=== PATIENT | male | born 1935 | race Caucasian/White ===

== ENCOUNTER 2018-10-09 11:05 | Outpatient (CLI) | payer BC ==
--- NOTE | 2018-10-11 03:25 | XRAY Report ---
Reason: JOINT KNEE PAIN,RIGHT Procedure Date: 10/09/2018 Accession Number: [id number] / [id number] Procedure: XRN - Knee 3 View RT CPT Code: FULL RESULT: EXAM: RIGHT KNEE RADIOGRAPHY EXAM DATE: 10/09/2018 11:32 AM. CLINICAL HISTORY: JOINT KNEE PAIN,RIGHT. COMPARISON: None. TECHNIQUE: 3 views. FINDINGS: Bones: No acute fractures. Joints: Suspect small suprapatellar effusion. No subluxations or dislocation. Multi-compartmental osteoarthritis of the knee most prominent at the medial compartment and patellofemoral articulation. Soft Tissues: Peripheral vascular calcifications and nonspecific calcifications in popliteal fossa. IMPRESSION: 1. Osteoarthritis of right knee without evidence of acute fracture. 2. Suspect small knee joint effusion. 3. Peripheral vascular calcifications and nonspecific calcifications in popliteal fossa. RADIA
== END 2018-10-09 11:06 | disposition home or self-care (01) ==
LOC: DI.N 11:05
PROVIDERS: ATTEND Family Medicine
DX: M17.11 Unilateral primary osteoarthritis, right knee (principal)

== ENCOUNTER 2019-10-30 15:04 | Observation (INO) | payer BC ==
[2019-10-30 15:30] LABS: BASOPHILS # (AUTO) 0.2 10^3/uL (0.0-0.1); BASOPHILS % (AUTO) 1.4 %; EOSINOPHILS % (AUTO) 0.1 %; HGB - HEMOGLOBIN 11.3 g/dL (14.0-18.0); LYMPHOCYTES # (AUTO) 0.7 10^3/uL (1.5-3.5); LYMPHOCYTES % (AUTO) 4.7 %; MEAN CORPUSCULAR HEMOGLOBIN 36.8 pg (27.0-31.0); MEAN CORPUSCULAR HGB CONC 33.9 g/dL (32.0-36.0); MEAN CORPUSCULAR VOLUME 108.5 fL (80.0-94.0); MEAN PLATELET VOLUME 11.7 fL (7.4-11.4); MONOCYTES # (AUTO) 0.8 10^3/uL (0.0-1.0); MONOCYTES % (AUTO) 5.7 %; NEUTROPHILS # (AUTO) 12.1 10^3/uL (1.5-6.6); NEUTROPHILS % (AUTO) 83.2 %; PLT - PLATELET COUNT 122 10^3/uL (130-450); RED BLOOD COUNT 3.07 10^6/uL (4.70-6.10); RED CELL DISTRIBUTION WIDTH 18.7 % (12.0-15.0); WHITE BLOOD COUNT 14.6 x10^3/uL (4.8-10.8)
[2019-10-30 15:45] LABS: ALBUMIN/GLOBULIN RATIO 1.2 (1.0-2.2); BILIRUBIN,TOTAL 3.6 mg/dL (0.2-1.0); CALCIUM 9.5 mg/dL (8.5-10.3); CREATININE 1.4 mg/dL (0.6-1.2); TOTAL PROTEIN 7.4 g/dL (6.7-8.2)
--- NOTE | 2019-10-30 16:04 | XRAY Report ---
PROCEDURE: Chest 1 View X-Ray INDICATIONS: Chest pain TECHNIQUE: One view of the chest was acquired. COMPARISON: None. FINDINGS: Surgical changes and devices: Multiple median sternotomy wires are in place. Left-sided cardiac pacin g device is visualized. Post surgical changes of the mediastinum, likely from prior revascularization procedure. Lungs and pleura: No pneumothorax. Diffuse interstitial prominence with mild loss of vascular distin ctness. Hazy opacity and blunting of the left costophrenic angle likely representing a pleural effusi on. There are also patchy bibasilar opacities more pronounced on the left. Minimal blunting of the ri ght costophrenic angle. Mediastinum: Atherosclerotic calcifications of the aortic arch are noted. Enlargement the cardiac bk [place]. Bones and chest wall: No suspicious bony lesions. Overlying soft tissues appear unremarkable. IMPRESSION: Cardiomegaly with findings suggestive of pulmonary edema. Left lower lung infectious etiology/pneumon ia not excluded if clinically appropriate. Reviewed by: Osvaldo Matamoros MD on 10/30/2019 4:03 PM PDT Approved by: Osvaldo Matamoros MD on 10/30/2019 4:03 PM PDT Station ID: [id number]
--- NOTE | 2019-10-30 16:18 | ED Physician Documentation ---
PD HPI DYSPNEA - Stated complaint Stated Complaint: COUGHING BLOOD,WEAK - Chief complaint Chief Complaint: General - History obtained from History obtained from: Patient - History of Present Illness Timing - onset: How many days ago (6) Timing - onset during: Light activity Timing - details: Gradual onset (had noted onset of some dyspnea and fatigue for the past week 1-2 weeks, but became very notable after having outpt stenting of AAA at [facility] 6 days ago (Oct 23). Has had edema in both legs, dyspnea, chest tightness. Had not had cough. Today he started to have some mild cough, with hemoptysis.), Still present Inciting event(s): No: Out of meds, URI (some cough today but no purulent sputum. No fever.) Associated symptoms: Cough (just some today), Hemoptysis, Chest pain / discomfort, Bilateral edema. No: Fever, Wheezing, Palpitations Similar symptoms before: Has not had sx before Recently seen: Clinic (had outpt cardiac stress test few weeks ago in prep for the aortic stenting just done. Daughter says the patient did fine on the stress test (possible small area of reversible ischemia per daughter).), Surgery (outpt stent of AAA 6 days ago without complications.) Review of Systems Constitutional: reports: Fatigue. denies: Fever, Chills Nose: denies: Rhinorrhea / runny nose, Congestion Throat: denies: Sore throat Cardiac: reports: Chest pain / pressure, Pedal edema. denies: Palpitations, Calf pain Respiratory: reports: Dyspnea, Cough, Hemoptysis (just today, small wispy red sputum, with one clot the size of a dime.). denies: Wheezing GI: denies: Abdominal Pain, Nausea, Vomiting, Diarrhea, Bloody / black stool Musculoskeletal: reports: Extremity swelling. denies: Neck pain, Back pain Neurologic: reports: Generalized weakness. denies: Near syncope, Altered mental status Endocrine: denies: Weight loss Immunocompromised: denies: Immunocompromised PD PAST MEDICAL HISTORY - Past Medical History Cardiovascular: Hypertension, High cholesterol, Coronary artery disease, Atrial fibrillation, Other Respiratory: None Endocrine/Autoimmune: None GI: Other : None HEENT: Chronic hearing loss Psych: None Musculoskeletal: None Derm: Other - Past Surgical History General:  Cardiovascular: CABG, AAA - Present Medications Home Medications: Ambulatory Orders Medication Instructions Recorded Confirmed Cholecalciferol (Vitamin D3) 1,000 unit PO DAILY 09/29/15 07/29/19 [Vitamin D3] Cyanocobalamin (Vitamin B-12) 1,000 mcg PO DAILY 09/29/15 07/29/19 [Vitamin B-12] Furosemide [Lasix] 20 mg PO DAILY 09/29/15 07/29/19 Potassium Bicarbonate/Cit AC 25 meq PO DAILY 09/29/15 07/29/19 [Potassium 25 Meq Tablet Eff] Warfarin [Coumadin] 5.5 mg PO DAILY 09/29/15 07/29/19 atenoloL [Atenolol] 25 mg PO DAILY 09/29/15 07/29/19 Folic Acid 0.4 mg PO DAILY 01/24/17 07/29/19 [place]-3/Dha/Epa/Fish Oil [[place] 3 2 each PO DAILY 07/29/19 07/29/19 500 Softgel] - Allergies Allergies/Adverse Reactions: Allergies Allergy/AdvReac Type Severity Reaction Status Date / Time No Known Drug Allergies Allergy Verified 10/30/19 15:09 - Social History Smoking Status: Never smoker PD ED PE NORMAL - Vitals Vital signs reviewed: Yes (sats 88-89% RA, with some work of breathing. ) - General General: Alert and oriented X 3, Well developed/nourished - HEENT HEENT: Pharynx benign - Neck Neck: Supple, no meningeal sign, No adenopathy, No bruit, Other (JVD noted at 60 degrees upright) - Cardiac Cardiac: RRR - Respiratory Respiratory: Other (some partial sentence dyspnea. ). No: Clear bilaterally (crackles at bases/ bottom third. No coarse sounds. Mild exp wheezes centrally. ) - Abdomen Abdomen: Normal bowel sounds, Soft, Non tender, Non distended, No organomegaly - Back Back: No CVA TTP - Derm Derm: Normal color, Warm and dry - Extremities Extremities: No tenderness to palpate, Normal ROM s pain, Other (1-2+ edema in both lower legs. No calf tenderrness. ) - Neuro Neuro: Alert and oriented X 3, No motor deficit, Normal speech - Psych Psych: Normal mood. No: Normal affect (anxious) Results - Vitals Vitals: Vital Signs - 24 hr 10/30/19 10/30/19 10/30/19 15:10 16:14 17:14 Temperature 36.8 C Heart Rate 60 60 67 Respiratory 16 27 H 21 Rate Blood Pressure 122/60 133/72 H 124/66 O2 Saturation 91 L 94 95 10/30/19 10/30/19 17:30 18:30 Temperature Heart Rate 20 L 69 Respiratory 63 H 26 H Rate Blood Pressure 115/82 H O2 Saturation 94 Oxygen O2 Source Room air Oxygen Flow Rate 2 - EKG (time done) 15:18 Rate: Rate (enter#) (60) Rhythm: Other (junctional) Intervals: LBBB Ischemia: Normal ST segments, ST elevation c/w ischemia, Non specific changes Compare to prior EKG: Unchanged from prior EKG (September 2015, very same ECG.) - Labs Labs: Laboratory Tests 10/30/19 10/30/19 10/30/19 15:23 15:23 15:23 WBC 14.6 H RBC 3.07 L Hgb 11.3 L Hct 33.3 L MCV 108.5 H MCH 36.8 H MCHC 33.9 RDW 18.7 H Plt Count 122 L MPV 11.7 H Neut # (Auto) 12.1 H Lymph # (Auto) 0.7 L Prentiss # (Auto) 0.8 Eos # (Auto) 0.0 Baso # (Auto) 0.2 H Absolute Nucleated RBC 0.00 Nucleated RBC % 0.0 Manual Slide Review Indicated Platelet Estimate DECREASED (<130,000) Platelet Morphology NORMAL APPEARANCE RBC Morph Micro Appear 1+ MACROCYTOSIS PT INR Sodium 138 Potassium 4.5 Chloride 101 Carbon Dioxide 24 Anion Gap 13.0 BUN 36 H Creatinine 1.4 H Estimated GFR (MDRD) 48 L Glucose 130 H Calcium 9.5 Magnesium Total Bilirubin 3.6 H AST 32 ALT 19 Alkaline Phosphatase 73 Troponin I High Sens 283.1 H* B-Natriuretic Peptide Total Protein 7.4 Albumin 4.0 Globulin 3.4 Albumin/Globulin Ratio 1.2 Lipase 27 10/30/19 10/30/19 10/30/19 15:23 15:23 15:23 WBC RBC Hgb Hct MCV MCH MCHC RDW Plt Count MPV Neut # (Auto) Lymph # (Auto) Prentiss # (Auto) Eos # (Auto) Baso # (Auto) Absolute Nucleated RBC Nucleated RBC % Manual Slide Review Platelet Estimate Platelet Morphology RBC Morph Micro Appear PT 25.7 H INR 2.4 H Sodium Potassium Chloride Carbon Dioxide Anion Gap BUN Creatinine Estimated GFR (MDRD) Glucose Calcium Magnesium 2.4 Total Bilirubin AST ALT Alkaline Phosphatase Troponin I High Sens B-Natriuretic Peptide 1164 H Total Protein Albumin Globulin Albumin/Globulin Ratio Lipase 10/30/19 17:30 WBC RBC Hgb Hct MCV MCH MCHC RDW Plt Count MPV Neut # (Auto) Lymph # (Auto) Prentiss # (Auto) Eos # (Auto) Baso # (Auto) Absolute Nucleated RBC Nucleated RBC % Manual Slide Review Platelet Estimate Platelet Morphology RBC Morph Micro Appear PT INR Sodium Potassium Chloride Carbon Dioxide Anion Gap BUN Creatinine Estimated GFR (MDRD) Glucose Calcium Magnesium Total Bilirubin AST ALT Alkaline Phosphatase Troponin I High Sens 283.7 H* B-Natriuretic Peptide Total Protein Albumin Globulin Albumin/Globulin Ratio Lipase - Rads (name of study) Chest x-ray Radiology: Prelim report reviewed (General interstitial fluid consistent with pulmonary edema. More consolidative area on the left lower lung. Correlate clinically if suspicion for pneumonia), See rad report PD MEDICAL DECISION MAKING - ED course Complexity details: re-evaluated patient (doing better with oxygen, initial Lasix, and Morphine. BP was relatively low so did not need BP lowering, so held NTG. ), considered differential (appears in CHF. is on blood thinner with some hemoptysis, but mild. Has had symptoms since AAA stent outpt 6 days ago. Presume fluid overload during procedure and then fluid retention since. Could also be periprocedure WI with the elevated Trop. ), d/w patient, d/w sr risk management consultant (S/W pt/daughter and with our Hospitalist, all of whom are good with pt here at our facility. WIll need diuresing, eval of heart (ECHO/stress). ) Departure - Departure Disposition: ED Place in Observation Clinical Impression: Elevated troponin Acute CHF Qualifiers: Heart failure type: unspecified Qualified Code(s): I50.9 - Heart failure, unspecified Dyspnea Qualifiers: Dyspnea type: shortness of breath Qualified Code(s): R06.02 - Shortness of breath Condition: Stable Discharge Date/Time: 10/30/19 19:41
[2019-10-30 16:20] LABS: PLATELET MORPHOLOGY NORMAL APPEARANCE (NORMAL)
[2019-10-30 16:21] LABS: PLATELET ESTIMATE, MANUAL DECREASED (<130,000) (NORMAL)
[2019-10-30] MEDS ORDERED: FUROSEMIDE 40 MG/4 ML VIAL IVP STA (16:36)
[2019-10-30 16:38] LABS: INR 2.4 (0.8-1.2); PT - PROTHROMBIN TIME 25.7 secs (9.9-12.6)
[2019-10-30] MEDS ORDERED: ALBUTEROL 1 PUFF INH STA (16:38)
[2019-10-30] MEDS ORDERED: MORPHINE 2 MG/ML CARPUJECT IVP STA (16:41)
[2019-10-30] MEDS ORDERED: FUROSEMIDE 100 MG/10 ML VIAL IVP STA (18:11)
[2019-10-30] MEDS ORDERED: ACETAMINOPHEN 325 MG TABLET PO PRN (18:46)
[2019-10-30] MEDS ORDERED: SODIUM CHLORIDE FLUSH 0.9% 10 ML SYRINGE IVP PRN (18:46)
[2019-10-30] MEDS ORDERED: ONDANSETRON ODT 4 MG TABLET TL PRN (18:46)
[2019-10-30] MEDS ORDERED: ONDANSETRON 4 MG/2 ML VIAL IVP PRN (18:46)
--- NOTE | 2019-10-30 19:37 | HISTORY & PHYSICAL EXAMINATION ---
Chief Complaint - Chief Complaint Chief Complaint: Weakness and coughing up blood History of Present Illness - Admitted From Admitted From:: Home - History Obtained From Records Reviewed: Yes History obtained from: Patient, ER Physician, EMR - History of Present Illness HPI Comment/Other: This is a 83-year-old male with a past medical history significant for coronary artery disease status post CABG, atrial fibrillation on Coumadin, AAA status post remote EVAR who presents today due to worsening weakness and blood-tinged sputum. He has a history of Ivar in the remote past there was suspicion for endoleak due to an increase in sac size on follow-up imaging. He underwent an aortogram on 23 October at [facility] for evaluation which showed no evidence of endoleak. He was discharged the same day home. He states that after that procedure, he felt weak over the first couple days but then his strength returned. He states that today he became really weak again where he could not even get out of the chair to walk to the bathroom. He normally ambulates with a walker at baseline. He also felt quite short of breath when walking to the bathroom. He also noticed some blood-tinged sputum yesterday evening. He reports no chest pain, fever, chills, dizziness, lightheadedness. He reports no orthopnea or lower extremity edema. He states he underwent a stress test a week prior to the procedure last week and his community midwife (Dr. Forbes) who is at [facility], stated that there may be a potential blockage but unless he had chest pain that there would be no intervention. He denies any evidence of bleeding except for blood-tinged sputum. He states this was about the size of a quarter. Reports no blood in his stool. He does take Coumadin. Does not take aspirin. In the emergency department, he was found to be afebrile temperature of 36 point degrees Celsius. His heart rate was 60. His blood pressure is 122/60. He was initially saturating 91% on room air but this improved to 95% on room air. His labs are significant for a white count of 14.6. His INR was 2.4. His creatinine was 1.4. Initial troponin was 283.1. Recheck 2 hours later was stable at 283.7. His BNP was elevated at 1164. Chest x-ray is concerning for pulmonary vascular congestion and a possible left lower lobe consolidation. His EKG showed a junctional rhythm with slight ST elevations in the inferior leads. This EKG is unchanged compared to his prior EKG from 2016. Given the above findings, medicine was consulted for admission. He did receive IV Lasix in the emergency department. I did discuss goals of care with the patient and he would like to be a DNR. History - Past Medical History Cardiovascular: reports: Hypertension, High cholesterol, Coronary artery disea se, Atrial fibrillation, Other (Aortic aneurysm) Respiratory: reports: None Neuro: reports: None Endocrine/Autoimmune: reports: None : reports: None HEENT: reports: Chronic hearing loss Psych: reports: None Musculoskeletal: reports: None Derm: reports: Other MRSA Hx?: No - Past Surgical History General: Cardiovascular: reports: CABG, AAA - Family & Social History Family History Comment/Other: Reports his father from myocardial infarction. His mother from cancer although he is unsure of what kind of cancer. His parents did not have diabetes. Living arrangement: At home Living Situation: Alone Social History Notes: He lives alone but his daughter lives next door and her mother in law suite. He is a non-smoker and has never smoked. He used to drink alcohol on a social basis but no longer consumes alcohol. 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 He has lived here on [facility] since the early . Meds/Allgy - Home Medications Home Medications: Ambulatory Orders Medication Instructions Recorded Confirmed Cholecalciferol (Vitamin D3) 1,000 unit PO DAILY 09/29/15 07/29/19 [Vitamin D3] Cyanocobalamin (Vitamin B-12) 1,000 mcg PO DAILY 09/29/15 07/29/19 [Vitamin B-12] Furosemide [Lasix] 20 mg PO DAILY 09/29/15 07/29/19 Potassium Bicarbonate/Cit AC 25 meq PO DAILY 09/29/15 07/29/19 [Potassium 25 Meq Tablet Eff] Warfarin [Coumadin] 5.5 mg PO DAILY 09/29/15 07/29/19 atenoloL [Atenolol] 25 mg PO DAILY 09/29/15 07/29/19 Folic Acid 0.4 mg PO DAILY 01/24/17 07/29/19 [place]-3/Dha/Epa/Fish Oil [[place] 3 2 each PO DAILY 07/29/19 07/29/19 500 Softgel] - Allergies Allergies/Adverse Reactions: Allergies Allergy/AdvReac Type Severity Reaction Status Date / Time No Known Drug Allergies Allergy Verified 10/30/19 15:09 Review of Systems - Constitutional Constitutional: reports: Fatigue, Weakness. denies: Fever, Chills, Malaise - Ears, Nose & Throat Ears, Nose & Throat: denies: Nasal congestion, Sore throat - Cardiovascular Cariovascular: reports: Exertional dyspnea, Decr. exercise tolerance. denies: Palpitations, Chest pain, Edema, Lightheadedness - Respiratory Respiratory: reports: Cough, Sputum production, Hemoptysis, SOB with exertion. denies: SOB at rest - Gastrointestinal Gastrointestinal: denies: Abdominal pain, Bloody stools, Nausea, Vomiting - Genitourinary Genitourinary: denies: Dysuria, Frequency, Urgency, Hematuria - Musculoskeletal Musculoskeletal: reports: Muscle weakness. denies: Muscle pain, Limited range of motion - Integumentary Integumentary: denies: Rash - Neurological Neurological: reports: General weakness. denies: Focal weakness, Dizziness - Hematologic/Lymphatic Hematologic/Lymphatic: reports: Anemia. denies: Bleeding tendencies - All Other Systems All Other Systems: reports: Reviewed and negative Prior Level of Functionality: He ambulates with a walker at baseline. He has outpatient physical therapy twice a week. His daughter lives next door in a [id number] suite but he is independent for most of his ADLs. Exam - Vital Signs Reviewed Vital Signs: Yes Vital Signs: Vital Signs x48h Temp Pulse Resp BP Pulse Ox 10/30/19 19:18 60 16 133/77 H 10/30/19 18:30 69 26 H 115/82 H 94 10/30/19 17:30 20 L 63 H 10/30/19 17:14 67 21 124/66 95 10/30/19 16:14 60 27 H 133/72 H 94 10/30/19 15:10 36.8 C 60 16 122/60 91 L - Physical Exam General Appearance: positive: No acute distress, Alert Eyes Bilateral: positive: Normal inspection, Conjunctivae nml ENT: positive: ENT inspection nml Neck: positive: Nml inspection Respiratory: positive: No respiratory distress, Rales, Other (He is not tachypneic but there are bilateral crackles noted.). negative: Wheezes, Rhonchi Cardiovascular: positive: Regular rate & rhythm, No murmur. negative: Tachycardia, Bradycardia, Systolic murmur Abdomen: positive: Non-tender, No distention. negative: Tenderness, Guarding, Rebound Skin: positive: Warm, Dry Extremities: positive: Full ROM, No pedal edema Neurologic/Psychiatric: positive: Oriented x3, Motor nml. negative: Disoriented to person, Disoriented to place, Disoriented to time Conclusion/Plan - Problem List (1) Acute CHF Conclusion/Plan: His presentation is consistent with exacerbation of CHF given his x-ray findings suggest pulmonary vascular congestion and his BNP is elevated. There is no prior echocardiogram available so it is unclear if this is diastolic or systolic dysfunction. Fortunately, he is not hypoxic. He received IV Lasix in the emergency department. We will continue him on IV Lasix. Obtain echocardiogram. Monitor on telemetry. Daily weights. Strict I's and O's. Qualifiers: Heart failure type: unspecified Qualified Code(s): I50.9 - Heart failure, unspecified (2) Community acquired pneumonia Conclusion/Plan: His x-ray is concerning for possible left lower lobe infiltrate. He is afebrile but this could represent pneumonia given his white count is quite elevated compared to baseline. He was tested for COVID-19 prior to his procedure last week and this was negative. Given his dyspnea, we will treat him empirically for community-acquired pneumonia. We will start him on ceftriaxone azithromycin IV. Continue to trend his white count. Qualifiers: Laterality: left Lung location: lower lobe of lung Qualified Code(s): J18.9 - Pneumonia, unspecified organism (3) Elevated troponin Conclusion/Plan: His troponin is elevated at 283 but this is flat on recheck. His EKG is also unchanged compared to 4 years ago. Suspect this is likely demand ischemia given the CHF and possible pneumonia. He did undergo a stress test 2 weeks ago reportedly which was concerning for a possible blockage but his community midwife told him there would be no intervention unless he has chest pain. We will reque st those records from his community midwife. We will continue to trend his troponin. Monitor on telemetry. If his troponin rise significantly, we will further discuss with the patient's community midwife regarding management as the patient and family are hesitant regarding possible intervention given the risks and benefits and the patients multiple comorbidities. (4) History of coronary artery disease Conclusion/Plan: He has known coronary artery disease and is status post CABG in 1996. His troponin is currently elevated but this is flat and suspect this is demand ischemia given the CHF and likely pneumonia. We will continue to trend his troponin. Continue his home medications. (5) Status post AAA (abdominal aortic aneurysm) repair Conclusion/Plan: He has remote history of EVAR and underwent aortogram recently which showed no evidence of leak at [facility] on 23 of October. (6) History of atrial fibrillation Conclusion/Plan: He is currently in a junctional rhythm. His INR is therapeutic. We will continue his home atenolol and Coumadin. Monitor on telemetry. (7) Myelodysplastic syndrome Conclusion/Plan: This was diagnosed in 2009. He received Vidaza chemotherapy for 6 cycles in 2010. His hemoglobin and platelet count have been stable. His white count is elevated today and this may be due to pneumonia. Continue outpatient follow up with Oncology. - Lab Results Lab results reviewed: Yes Hemal Bones: 10/30/19 15:23 10/30/19 15:23 - Diagnostic Imaging Results Diagnostic Imaging Results: positive: Final report reviewed - EKG Results EKG Interpreted Independently: Yes EKG Comparison: Unchanged from prior EKG EKG Findings: His EKG shows a junctional rhythm with slight ST elevations in leads II, III, aVF. This is unchanged compared to his prior EKG from 2016. Core Measures - Anticipated LOS I expect patient to be DC'd or transferred within 96 hours.: Yes - Issues Hospital Issues and Management Plan: 83-year-old male presents with weakness and blood-tinged sputum after undergoing AAA stenting 1 week ago at [facility]. X-ray is concerning for CHF and possible pneumonia. We will place in observation for antibiotics and IV diuretics. - DVT/VTE - Prophylaxis VTE/DVT Device ordered at admit?: Yes VTE/DVT Prophylaxis med ordered at admit?: No Not Ordered - Medical Reason: Not indicated
[2019-10-30] MEDS ORDERED: cefTRIAXone 2 GM in SODIUM CHLORIDE 0.9% MINIBAG 100 ML IV SCH (19:52)
[2019-10-30] MEDS ORDERED: SODIUM CHLORIDE 0.9% MINIBAG 100 ML IV ONE (20:27)
[2019-10-30] MEDS: AZITHROMYCIN INJ 500 MG in SODIUM CHLORIDE 0.9% 250 ML IV SCH (20:28)
[2019-10-30] MEDS: oxyCODONE 5 MG TABLET PO PRN (21:18)
[2019-10-30] MEDS: SODIUM CHLORIDE FLUSH 0.9% 10 ML SYRINGE IVP SCH (23:58)
[2019-10-31 05:11] LABS: RED CELL DISTRIBUTION WIDTH 18.7 % (12.0-15.0)
[2019-10-31 05:17] LABS: BASOPHILS # (AUTO) 0.1 10^3/uL (0.0-0.1); BASOPHILS % (AUTO) 1.1 %; CALCIUM 9.1 mg/dL (8.5-10.3); CREATININE 1.4 mg/dL (0.6-1.2); EOSINOPHILS % (AUTO) 0.1 %; HGB - HEMOGLOBIN 10.1 g/dL (14.0-18.0); LYMPHOCYTES # (AUTO) 0.7 10^3/uL (1.5-3.5); LYMPHOCYTES % (AUTO) 7.1 %; MEAN CORPUSCULAR HEMOGLOBIN 36.1 pg (27.0-31.0); MEAN CORPUSCULAR HGB CONC 33.3 g/dL (32.0-36.0); MEAN CORPUSCULAR VOLUME 108.2 fL (80.0-94.0); MEAN PLATELET VOLUME 13.8 fL (7.4-11.4); MONOCYTES # (AUTO) 0.7 10^3/uL (0.0-1.0); MONOCYTES % (AUTO) 7.3 %; NEUTROPHILS # (AUTO) 8.2 10^3/uL (1.5-6.6); NEUTROPHILS % (AUTO) 80.3 %; PLT - PLATELET COUNT 109 10^3/uL (130-450); WHITE BLOOD COUNT 10.2 x10^3/uL (4.8-10.8)
[2019-10-31 05:44] LABS: PLATELET ESTIMATE, MANUAL DECREASED (<130,000) (NORMAL); PLATELET MORPHOLOGY 1+ LARGE PLATELETS (NORMAL)
[2019-10-31] MEDS: oxyCODONE 5 MG TABLET PO PRN ×2 (06:09→15:36)
[2019-10-31] MEDS ORDERED: FUROSEMIDE 40 MG/4 ML VIAL IVP SCH (09:00)
[2019-10-31] MEDS ORDERED: atenoloL 25 MG TABLET PO SCH (09:00)
[2019-10-31] MEDS: AZITHROMYCIN INJ 500 MG in SODIUM CHLORIDE 0.9% 250 ML IV SCH (09:38)
[2019-10-31] MEDS: SODIUM CHLORIDE FLUSH 0.9% 10 ML SYRINGE IVP SCH (09:38)
[2019-10-31] MEDS: WARFARIN 5 MG TABLET PO SCH ×2 (09:40→15:36)
[2019-10-31] MEDS ORDERED: cefTRIAXone 2 GM in SODIUM CHLORIDE 0.9% MINIBAG 100 ML IV SCH (11:30)
[2019-10-31 12:21] VITALS: BP 104/46
--- NOTE | 2019-10-31 13:08 | PHARMACY PROGRESS NOTE ---
- Best Possible Medication History Admit Date and Time: 10/30/19 1846 Processed by: Pharmacy Medication History completed: Yes Patient Interview: Completed Secondary Source(s): Physician records As the person ultimately responsible for medication therapy, providers are able to order a medication from an existing home medication list in [facility] via the "Reconcile Routine" prior to Confirmation of that medication by senior support engineer. Such practice is discouraged except when the physician, in their clinical judgment, deems that a medical need exists for a medication without regard to previous use.
--- NOTE | 2019-10-31 13:17 | Discharge Plan ---
Discharge Plan Problem Reviewed?: Yes Disposition: Home, Self Care Condition: Stable Prescriptions: Azithromycin [Zithromax] 250 mg PO DAILY #3 tab Diet: Low Sodium Activity Restrictions: Activity as Tolerated Shower Restrictions: No Driving Restrictions: No Health Concerns: He presented to the hospital with progressive weakness and shortness of breath that was much worse on the day of admission after getting a procedure to see if your abdominal aortic aneurysm stent was leaking. After being evaluated in the emergency room we found her to have fluid overload on her chest x-ray when we looked at your lungs. Blood testing showed you were fluid overload. We gave you high doses of Lasix which is a diuretic that makes you pee. With that you briskly urinated and felt better over the course of the night. Plan of Treatment: 1. Please see your military pay technician in follow-up in the next 1 to 2 weeks 2. We have deliberately kept your Lasix dose the same dose as you came in on. We think we were able to aggressively diurese you enough that we do not need to increase your Lasix in the outpatient setting. However, if you feel like you are getting more short of breath, take an extra Lasix and call your military pay technician. Care Goals: To return to baseline before you are in the hospital with regards to endurance and medications Assessment: Patient is understanding of treatment plan, and will follow up with cardiology No Smoking: If you smoke, Please STOP! Call for help. Follow-up with: Kvng Curtis MD [Primary Care Provider] -
--- NOTE | 2019-10-31 13:21 | DISCHARGE SUMMARY ---
"Discharge Summary Admit Date: 10/30/19 Discharge Date: 10/31/19 Discharging Provider: Sandhya Hastings MD Primary Care Provider: Kvng Curtis MD/ Angelina Forbes MD ([facility]) Code Status: Do Not Attempt Resuscitation Condition at Discharge: Stable Discharge Disposition: 01 Home, Self Care - DIAGNOSES Discharge Diagnoses with Status of Each Condition: 1. 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 Abnormal chest x-ray indicating possible pneumonia 3. Elevated troponin 4. History of coronary artery disease 5. Status post abdominal aortic aneurysm repair 6. Chronic atrial fibrillation 7. Junctional rhythm 8. Myelodysplastic syndrome - HPI History of Present Illness: This is a 83-year-old male with a past medical history significant for coronary artery disease status post CABG, atrial fibrillation on Coumadin, AAA status post remote EVAR who presents today due to worsening weakness and blood-tinged sputum. He has a history of Ivar in the remote past there was suspicion for endoleak due to an increase in sac size on follow-up imaging. He underwent an aortogram on 23 October at [facility] for evaluation which showed no evidence of endoleak. He was discharged the same day home. He states that after that procedure, he felt weak over the first couple days but then his strength returned. He states that today he became really weak again where he could not even get out of the chair to walk to the bathroom. He normally ambulates with a walker at baseline. He also felt quite short of breath when walking to the bathroom. He also noticed some blood-tinged sputum yesterday evening. He reports no chest pain, fever, chills, dizziness, lightheadedness. He reports no orthopnea or lower extremity edema. He states he underwent a stress test a week prior to the procedure last week and his hvac project manager (Dr. Forbes) who is at [facility], stated that there may be a potential blockage but unless he had chest pain that there would be no intervention. He denies any evidence of bleeding except for blood-tinged sputum. He states this was about the size of a quarter. Reports no blood in his stool. He does take Coumadin. Does not take aspirin. In the emergency department, he was found to be afebrile temperature of 36 point degrees Celsius. His heart rate was 60. His blood pressure is 122/60. He was initially saturating 91% on room air but this improved to 95% on room air. His labs are significant for a white count of 14.6. His INR was 2.4. His creatinine was 1.4. Initial troponin was 283.1. Recheck 2 hours later was stable at 283.7. His BNP was elevated at 1164. Chest x-ray is concerning for pulmonary vascular congestion and a possible left lower lobe consolidation. His EKG showed a junctional rhythm with slight ST elevations in the inferior leads. This EKG is unchanged compared to his prior EKG from 2016. Given the above fi ndings, medicine was consulted for admission. He did receive IV Lasix in the emergency department. I did discuss goals of care with the patient and he would like to be a DNR. - CONSULTS | PROCEDURES Procedures: 1. Chest x-ray cardiomegaly with findings suggestive of pulmonary edema. Left lower lung infectious etiology or pneumonia cannot be excluded by this x-ray. 2. Echocardiogram report is very preliminary finding. Final report needs to be reviewed. Appears to have worsening right-sided heart failure with new RV dilation, new ASD. - HOSPITAL COURSE Hospital Course: Patient was placed in observation. He received 100 mg and 40 mg of Lasix in the emergency room. Then another 40 mg after overnight stay. He had brisk diuresis. Telemetry confirmed ventricular paced rhythm. Blood pressure stayed stable and varied anywhere between 104 systolic to 137 systolic. At one point his heart rate did go to 125 with a brief episode of A. fib and then it resolved on its own. He is 94% on room air. Ambulating in his room, has eaten breakfast and lunch. Echocardiogram was done just before discharge and the final report will need to be reviewed with his hvac project manager. He did have elevated troponins in the emergency room to 283. Repeat troponin was 283 again. Troponin after that was 319. These are all felt to be due to his congestive heart failure, acute exacerbation, and not true DC. BNP started at 1164 and was 743 at discharge. Creatinine remained stable at 1.4 on admission and discharge. Chest x-ray was indicative of possible infiltrate. He had been coughing up a little bit of sputum that was blood-tinged. But no fever, and white cell count was 14.6. He was started on azithromycin and ceftriaxone. After overnight stay his white cell count was down to 10.2 and he continued to be without fever. He will be sent home on azithromycin empirically. His hemoglobin remained stable during his stay. He is chronically anemic due to myelodysplastic syndrome. He did not require transfusion during his stay. He is discharged in stable condition. A tall elderly gentleman at 6 feet 2 i nches tall weighing 87 kg. Posture is that of a slight kyphosis, stooped over gentleman. Quiet demeanor. Very pleasant conversationalist. Temperature is 36.3. Pulse is 86. Blood pressure 137/78. Respirations 20 and unlabored. 96% on room air. At discharge, the nurse has not recorded that 96% on room air yet. Alert, oriented. Wearing glasses. Walking the hallway slowly with a walker. No increased respiratory effort. No JVD, clear lungs, regular rate and rhythm with a systolic murmur, and no pedal edema. Since I have briskly diuresed him with IV Lasix, I will not be changing his home Lasix order since I think this was temporary fluid overload due to the dye study looking for a AAA leak. I have emphasized low-salt diet. I would like him to see his hvac project manager in the next week. I did call Dr. Forbes's office at [phone]. Left a message with his registered medical transcriptionist to check in with the patient, and make an appointment to be seen in the next week or so. However, Preliminary echo report shows massive right heart failure. He may have an ASD that is at least 8 mm big. Backward flow is so severe that his tricuspid valve leaflets do not close. His ejection fraction on the left side is calculated about 41% but this may be an over calculation and may be less due to the ASD. Dr. Edwards, cardiology media relations manager for his cardiology group. He lifted an echo from September 2018. At that time he had moderate tricuspid regurgitation and normal RV size and mild pulmonary hypertension. So his disease is progressed on the right side. They will call the patient tomorrow and make an appointment in the near future. - ALLERGIES Allergies/Adverse Reactions: Allergies Allergy/AdvReac Type Severity Reaction Status Date / Time No Known Drug Allergies Allergy Verified 10/30/19 15:09 - MEDICATIONS Home Medications: Ambulatory Orders Medication Instructions Recorded Confirmed Cholecalciferol (Vitamin D3) 1,000 unit PO DAILY 09/29/15 10/31/19 [Vitamin D3] Cyanocobalamin (Vitamin B-12) 1,000 mcg PO DAILY 09/29/15 10/31/19 [Vitamin B-12] Furosemide [Lasix] 20 mg PO DAILY 09/29/15 10/31/19 Warfarin [Coumadin] 5 mg PO DAILY 09/29/15 10/31/19 atenoloL [Atenolol] 25 mg PO DAILY 09/29/15 10/31/19 Folic Acid 0.4 mg PO DAILY 01/24/17 10/31/19 [place]-3/Dha/Epa/Fish Oil [[place] 3 2 each PO DAILY 07/29/19 10/31/19 500 Softgel] Azithromycin [Zithromax] 250 mg PO DAILY #3 tab 10/31/19 Potassium Chloride 20 meq PO DAILY 10/31/19 10/31/19 - LABS Result Diagrams: 10/31/19 04:35 10/31/19 04:35"
== END 2019-10-31 17:00 | disposition home or self-care (01) ==
LOC: ED 15:04 → MS3 18:46
PROVIDERS: ADMIT Specialist; ATTEND Specialist
DX: I11.0 Hypertensive heart disease with heart failure (principal); I50.813 Acute on chronic right heart failure; R91.8 Other nonspecific abnormal finding of lung field; R79.89 Other specified abnormal findings of blood chemistry; I25.10 Atherosclerotic heart disease of native coronary artery without angina pectoris; I48.20 Chronic atrial fibrillation, unspecified; Z79.01 Long term (current) use of anticoagulants; D46.9 Myelodysplastic syndrome, unspecified; Z98.890 Other specified postprocedural states; Z95.1 Presence of aortocoronary bypass graft; E87.70 Fluid overload, unspecified; I27.20 Pulmonary hypertension, unspecified; I24.8 Other forms of acute ischemic heart disease
CPT/HCPCS: 36415; 71045; 80048; 80053; 83690; 83735; 83880; 84484; 85025; 85610; 93005; 93306; 94640; 96365; 96366; 96367; 96368; 96375; 96376; 99284; 99285; A9270; G0378; J1940

== ENCOUNTER 2019-11-05 10:56 | Outpatient (CLI) | payer BC ==
[2019-11-05 18:22] LABS: HGB - HEMOGLOBIN 11.5 g/dL (14.0-18.0); MEAN CORPUSCULAR HEMOGLOBIN 37.5 pg (27.0-31.0); MEAN CORPUSCULAR VOLUME 113.4 fL (80.0-94.0); PLT - PLATELET COUNT 77 10^3/uL (130-450); RED BLOOD COUNT 3.07 10^6/uL (4.70-6.10); RED CELL DISTRIBUTION WIDTH 18.6 % (12.0-15.0); WHITE BLOOD COUNT 3.4 x10^3/uL (4.8-10.8)
[2019-11-05 18:39] LABS: CALCIUM 9.3 mg/dL (8.5-10.3)
== END 2019-11-05 23:59 | disposition home or self-care (01) ==
LOC: LAB.WCP 10:56
PROVIDERS: ATTEND Family Medicine
DX: I50.813 Acute on chronic right heart failure (principal)
CPT/HCPCS: 36415; 80048; 83880; 85027

== ENCOUNTER 2019-12-16 16:05 | Emergency (ER) | payer BC ==
[2019-12-16 16:54] LABS: BASOPHILS # (AUTO) 0.1 10^3/uL (0.0-0.1); BASOPHILS % (AUTO) 1.4 %; EOSINOPHILS # (AUTO) 0.1 10^3/uL (0.0-0.7); EOSINOPHILS % (AUTO) 0.8 %; HGB - HEMOGLOBIN 10.8 g/dL (14.0-18.0); LYMPHOCYTES # (AUTO) 0.9 10^3/uL (1.5-3.5); LYMPHOCYTES % (AUTO) 10.8 %; MEAN CORPUSCULAR HEMOGLOBIN 36.9 pg (27.0-31.0); MEAN CORPUSCULAR HGB CONC 33.5 g/dL (32.0-36.0); MEAN CORPUSCULAR VOLUME 109.9 fL (80.0-94.0); MEAN PLATELET VOLUME 12.5 fL (7.4-11.4); MONOCYTES # (AUTO) 0.7 10^3/uL (0.0-1.0); MONOCYTES % (AUTO) 7.9 %; NEUTROPHILS # (AUTO) 6.4 10^3/uL (1.5-6.6); NEUTROPHILS % (AUTO) 75.1 %; PLT - PLATELET COUNT 123 10^3/uL (130-450); RED BLOOD COUNT 2.93 10^6/uL (4.70-6.10); RED CELL DISTRIBUTION WIDTH 19.1 % (12.0-15.0); WHITE BLOOD COUNT 8.5 x10^3/uL (4.8-10.8)
--- NOTE | 2019-12-16 16:59 | ED Physician Documentation ---
History of Present Illness - Stated complaint Stated Complaint: WEAK/BLOOD IN URIN - Chief complaint Chief Complaint: UTI - History obtained from History obtained from: Patient - Additonal information Additional information: Patient comes emergency department complaining of blood-tinged sputum when he coughs for the last couple of days and blood in his urine when he urinates for the past 2 to 3 days. Patient is on Coumadin for atrial fibrillation, but as far as he knows, his INRs have been therapeutic. Patient has not noticed any easy bruising or bleeding anywhere in his breath. No fevers or chills. No dysuria. No back pain. No other complaints at this time. Review of Systems Ten Systems: 10 systems reviewed and negative Constitutional: reports: Reviewed and negative Eyes: reports: Reviewed and negative Ears: reports: Reviewed and negative Nose: reports: Reviewed and negative Throat: reports: Reviewed and negative Cardiac: reports: Reviewed and negative Respiratory: reports: Cough, Hemoptysis. denies: Dyspnea GI: reports: Reviewed and negative. denies: Abdominal Pain : reports: Hematuria. denies: Dysuria, Frequency Skin: reports: Reviewed and negative Musculoskeletal: reports: Reviewed and negative. denies: Back pain Neurologic: reports: Reviewed and negative Psychiatric: reports: Reviewed and negative Endocrine: reports: Reviewed and negative Immunocompromised: reports: Reviewed and negative PD PAST MEDICAL HISTORY - Past Medical History Cardiovascular: Hypertension, High cholesterol, Coronary artery disease, Atrial fibrillation, Other (Aortic aneurysm) Respiratory: None Neuro: None Endocrine/Autoimmune: None GI: Other : None HEENT: Chronic hearing loss Psych: None Musculoskeletal: None Derm: Other - Past Surgical History Past Surgical History: Yes General:  Cardiovascular: CABG, AAA - Present Medications Home Medications: Ambulatory Orders Medication Instructions Recorded Confirmed Cholecalciferol (Vitamin D3) 1,000 unit PO DAILY 09/29/15 10/31/19 [Vitamin D3] Cyanocobalamin (Vitamin B-12) 1,000 mcg PO DAILY 09/29/15 10/31/19 [Vitamin B-12] Furosemide [Lasix] 20 mg PO DAILY 09/29/15 10/31/19 Warfarin [Coumadin] 5 mg PO DAILY 09/29/15 10/31/19 Folic Acid 0.4 mg PO DAILY 01/24/17 10/31/19 [place]-3/Dha/Epa/Fish Oil [[place] 3 2 each PO DAILY 07/29/19 10/31/19 500 Softgel] Isosorbide Mononitrate [Isosorbide 60 mg PO DAILY 12/16/19 12/16/19 Mononitrate ER] Losartan Potassium 25 mg PO DAILY 12/16/19 12/16/19 Metoprolol Succinate 25 mg PO DAILY 12/16/19 12/16/19 - Allergies Allergies/Adverse Reactions: Allergies Allergy/AdvReac Type Severity Reaction Status Date / Time No Known Drug Allergies Allergy Verified 12/16/19 16:14 - Social History Does the pt smoke?: No Smoking Status: Never smoker PD ED PE NORMAL - Vitals Vital signs reviewed: Yes - General General: Alert and oriented X 3, No acute distress - HEENT HEENT: Atraumatic, PERRL, EOMI, Moist mucous membranes - Neck Neck: Supple, no meningeal sign - Cardiac Cardiac: RRR, No murmur - Respiratory Respiratory: No respiratory distress, Clear bilaterally - Abdomen Abdomen: Soft, Non tender, Non distended - Back Back: No CVA TTP, No spinal TTP - Derm Derm: Normal color, Warm and dry, No rash - Extremities Extremities: No deformity, No edema, No calf tenderness / cord - Neuro Neuro: Alert and oriented X 3, Other (Grossly intact) - Psych Psych: Normal mood, Normal affect Results - Vitals Vitals: Vital Signs - 24 hr 12/16/19 12/16/19 16:09 18:49 Temperature 36.8 C 36.8 C Heart Rate 59 L 60 Respiratory 18 14 Rate Blood Pressure 120/55 L 120/64 O2 Saturation 96 97 Oxygen O2 Source Room air - Labs Labs: Laboratory Tests 12/16/19 12/16/19 12/16/19 16:45 16:45 16:45 WBC 8.5 RBC 2.93 L Hgb 10.8 L Hct 32.2 L MCV 109.9 H MCH 36.9 H MCHC 33.5 RDW 19.1 H Plt Count 123 L MPV 12.5 H Neut # (Auto) 6.4 Lymph # (Auto) 0.9 L [place] # (Auto) 0.7 Eos # (Auto) 0.1 Baso # (Auto) 0.1 Absolute Nucleated RBC 0.00 Nucleated RBC % 0.0 PT 27.4 H INR 2.6 H Sodium 136 Potassium 4.1 Chloride 100 L Carbon Dioxide 27 Anion Gap 9.0 BUN 32 H Creatinine 1.2 Estimated GFR (MDRD) 57 L Glucose 106 H Calcium 9.3 Total Bilirubin 3.0 H AST 25 ALT 19 Alkaline Phosphatase 70 Total Protein 7.6 Albumin 3.9 Globulin 3.7 Albumin/Globulin Ratio 1.1 Lipase 27 Urine Color Urine Clarity Urine pH Ur Specific [place] Urine Protein Urine Glucose (UA) Urine Ketones Urine Occult Blood Urine Nitrite Urine Bilirubin Urine Urobilinogen Ur Leukocyte Esterase Ur Microscopic Review Urine Culture Comments 12/16/19 17:46 WBC RBC Hgb Hct MCV MCH MCHC RDW Plt Count MPV Neut # (Auto) Lymph # (Auto) [place] # (Auto) Eos # (Auto) Baso # (Auto) Absolute Nucleated RBC Nucleated RBC % PT INR Sodium Potassium Chloride Carbon Dioxide Anion Gap BUN Creatinine Estimated GFR (MDRD) Glucose Calcium Total Bilirubin AST ALT Alkaline Phosphatase Total Protein Albumin Globulin Albumin/Globulin Ratio Lipase Urine Color DARK YELLOW Urine Clarity CLEAR Urine pH 5.0 Ur Specific [place] 1.020 Urine Protein TRACE Urine Glucose (UA) NEGATIVE Urine Ketones NEGATIVE Urine Occult Blood TRACE-INTA Urine Nitrite NEGATIVE Urine Bilirubin NEGATIVE Urine Urobilinogen 4 H Ur Leukocyte Esterase NEGATIVE Ur Microscopic Review NOT INDICATED Urine Culture Comments NOT INDICATED PD MEDICAL DECISION MAKING - ED course Complexity details: reviewed results, re-evaluated patient, considered differential, d/w patient ED course: Patient was worked up with labs and chest x-ray, as well as urinalysis. INR was therapeutic at 2.6, and remainder of labs and CXR were unremarkable. UA was pending, and pt was signed out at change of shift to Dr. Zaragoza, pending this. Departure - Departure Disposition: 01 Home, Self Care Clinical Impression: Dehydration, Myelodysplastic syndrome, Hematuria Condition: Good Instructions: ED Dehydration Follow-Up: Kvng Curtis MD [Primary Care Provider] - Within 1 week Comments: Your testing does not show any acute abnormalities today. You need to increase your water intake and follow-up closely with your doctor for further care. Return if you worsen. Discharge Date/Time: 12/16/19 18:54
--- NOTE | 2019-12-16 17:08 | XRAY Report ---
PROCEDURE: Chest 2 View X-Ray INDICATIONS: cough TECHNIQUE: 2 view(s) of the chest. COMPARISON: Similar study 10/30/2019. FINDINGS: Surgical changes and devices: Sternotomy wires, prior CABG.. Lungs and pleura: No pleural effusions or pneumothorax. Lungs are chronically mildly edematous. Mediastinum: Mediastinal contours are normal. Heart size is globally enlarged, to a moderate to mod erately severe degree.. Bones and chest wall: No suspicious bony abnormalities. Soft tissues appear unremarkable. IMPRESSION: Chronic CHF pattern without pleural effusion. Lung base alveolar consolidation behind th e left heart appears to have improved. This may have represented pneumonia but atelectasis also could produce that appearance. No acute disease currently. Reviewed by: Cash Winters MD on 12/16/2019 5:07 PM PDT Approved by: Cash Wintesr MD on 12/16/2019 5:07 PM PDT Station ID: [id number]
[2019-12-16 17:11] LABS: INR 2.6 (0.8-1.2); PT - PROTHROMBIN TIME 27.4 secs (9.9-12.6)
[2019-12-16 17:16] LABS: ALBUMIN 3.9 g/dL (3.2-5.5); ALBUMIN/GLOBULIN RATIO 1.1 (1.0-2.2); CALCIUM 9.3 mg/dL (8.5-10.3); CREATININE 1.2 mg/dL (0.6-1.2); TOTAL PROTEIN 7.6 g/dL (6.7-8.2)
[2019-12-16 17:57] LABS: GLUCOSE, URINE (UA) NEGATIVE (NEGATIVE); KETONES,URINE (UA) NEGATIVE (NEGATIVE); LEUKOCYTE ESTERASE, URINE NEGATIVE (NEGATIVE); NITRITE,URINE NEGATIVE (NEGATIVE); OCCULT BLOOD,URINE TRACE-INTA (NEGATIVE); PROTEIN,URINE TRACE mg/dL (NEGATIVE); UROBILINOGEN,URINE 4 E.U./dL (NORMAL)
[2019-12-16 18:19] LABS: BILIRUBIN,URINE NEGATIVE (NEGATIVE); CLARITY,URINE CLEAR (CLEAR); ICTOTEST,URINE NEGATIVE
--- NOTE | 2019-12-16 18:27 | ED Physician Documentation ---
ED Addendum - Addendum Addendum: 12/16/19 18:25 Patient signed out to me awaiting urinalysis. Plan was to discharge the patient home with a urinalysis is normal. Encourage the patient to drink. Likely related to a dehydration. Patient is well-appearing, nontoxic. Afebrile. Patient and family counseled regarding signs and symptoms for which I believe and urgent re-evaluation would be necessary. Patient with good understanding of and agreement to plan and is comfortable going home at this time This document was made in part using voice recognition software. While efforts are made to proofread this document, sound alike and grammatical errors may occur. Departure - Departure Disposition: 01 Home, Self Care Clinical Impression: Dehydration, Myelodysplastic syndrome Hematuria Qualifiers: Hematuria type: unspecified type Qualified Code(s): R31.9 - Hematuria, unspecified Condition: Good Instructions: ED Dehydration Follow-Up: Kvng Curtis MD [Primary Care Provider] - Within 1 week Comments: Your testing does not show any acute abnormalities today. You need to increase your water intake and follow-up closely with your doctor for further care. Return if you worsen.
[2019-12-16 18:50] VITALS: BP 120/64
== END 2019-12-16 18:54 | disposition home or self-care (01) ==
LOC: ED 16:05
DX: E86.0 Dehydration (principal); D46.9 Myelodysplastic syndrome, unspecified; R31.9 Hematuria, unspecified; I48.91 Unspecified atrial fibrillation; Z79.01 Long term (current) use of anticoagulants
CPT/HCPCS: 36415; 71046; 80053; 81001; 81003; 83690; 85025; 85610; 87086; 99284

== ENCOUNTER 2020-01-02 10:50 | Outpatient (CLI) | payer BC ==
--- NOTE | 2020-01-02 20:15 | CONSULTATION NOTE ---
Palliative Care Consultation - Referral Referring Provider: Dr. Kvng Curtis Time of Visit: [id number] Referral setting: Home Referral Reason: CHF/Advanced Care Planning - Information Sources Records reviewed: Previous records reviewed History/Review of Systems obtained from: Patient, Family (daughter/Sunita SALINAS present) Exam limitations: Clinical condition ([facility]) - History of Present Illness Brief History of Present Illness: This is a nathalia 84-year-old gentleman who was seen today within his home with his daughter/Sunita DEWITT present for initial palliative care consultation due to congestive heart failure and significant cardiac history. The patient has had 2 emergency department visits in the last 6 weeks. The first episode resulted in the patient being unable to get out of bed. While in the emergency department it was noted that on chest x-ray he had an episode of congestive heart failure exacerbation. The second episode occurred after he was noting blood in his urine as well as coughing. Subsequently both instances have resolved. The patient has a history of an AAA status post graft in 2010. He has a yearly checkup in regards to the graft placement. Last evaluation was in October 2019 that resulted in a procedure as there was believed that there may possibly have been a leak. The patient and his daughter reports that everything was stable in regards to the graft. However, the patient reports that October 2019 was "a bad month." The patient is an individual that wishes to maintain his independence as much as possible. It takes him approximately 1 hour to dress and shower. The patient's daughter is looking into additional caregiving support through rest care agency for several hours a week. Typically after the patient stresses himself he is quite exhausted afterwards. The patient himself relays that he is not hungry most of the time. His daughter will gauge how the patient is feeling based on his interest in meals. He denies any noted weight loss. He does not have any lower extremity edema. The patient is now presently on his furosemide 20 mg on an as-needed basis and presently does not have any evidence of CHF exacerbation. The patient reports to having balance difficulty for years. He has had vertigo for approximately 10 years that has been worse in the last 3 to 4 years. He does have a history of falls. He typically will furniture surface in his living environment. When he is out in public he will use a Rollator for support. The patient overall reports a lack of energy. He cannot seem to fall asleep in his bed and often times after he gets up due to nocturia will finish the night sleeping in his recliner. His time of going to bed varies from night to night. The patient is seen in his recliner in the common area. He is a well groomed, distinguish elderly gentleman with no acute distress. He is quite articulate and a good historian. Vice President Of Advertising: Dr. 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 During his childhood he traveled a lot and was at 12 different schools in 12 years. His father at a young age and his mother remarried. The patient's stepfather was working with [employer]. He obtained a bachelor's degree in civil engineering and then a masters from [employer]. He is . His presently resides in a memory care unit on the [place]. He served in the [employer] for 3 years from 55- 58 and 1 year in [place]. He also resided for 4 years in [place]. He and his relocated to [facility] in 1970. He and his have 3 children, 2 daughters and 1 son. The patient resides in an in-law suite on his daughterSunita's property. The patient's home is next-door and is presently being remodeled to be turned into an [employer] to provide additional means to pay for the patient's 's stay in a memory care unit. He has enjoyed photography and collecting model trains. presently he still has interest in his stamp collection. Family History - Family History Family History: Mother: , Father: , [place] ([phone]) Medications/Allergies - Medications Home Medications: Ambulatory Orders Medication Instructions Recorded Confirmed Cholecalciferol (Vitamin D3) 5,000 unit PO DAILY 09/29/15 01/07/20 [Vitamin D3] Cyanocobalamin (Vitamin B-12) 1,000 mcg PO DAILY 09/29/15 01/07/20 [Vitamin B-12] Furosemide [Lasix] 20 mg PO DAILY PRN 09/29/15 01/07/20 Warfarin [Coumadin] 5 mg PO DAILY 09/29/15 01/07/20 Folic Acid 0.4 mg PO DAILY 01/24/17 01/07/20 Cornelius-3/Dha/Epa/Fish Oil [Cornelius 3 2 each PO DAILY 07/29/19 01/07/20 500 Softgel] Isosorbide Mononitrate [Isosorbide 60 mg PO DAILY 12/16/19 01/07/20 Mononitrate ER] Losartan Potassium 25 mg PO DAILY 12/16/19 01/07/20 Metoprolol Succinate 25 mg PO DAILY 12/16/19 01/07/20 Fluocinolone Acetonide Oil [Flac PRN 01/07/20 Otic Oil] Ketoconazole PRN 01/07/20 - Allergies Allergies/Adverse Reactions: Allergies Allergy/AdvReac Type Severity Reaction Status Date / Time No Known Drug Allergies Allergy Verified 01/07/20 18:57 Review of Systems - Constitutional Constitutional: reports: Fatigue. denies: Weight loss - Eyes Eyes: reports: Corrective lenses - Ears, Nose & Throat Ears, Nose & Throat: reports: Hearing loss, Hearing aids - Cardiovascular Cardiovascular: denies: Chest pain, Edema - Respiratory Respiratory: reports: SOB with exertion. denies: Cough - Gastrointestinal Gastrointestinal: reports: Constipation (mangaged with daily prune juice). denies: Abdominal pain, Vomiting - Genitourinary Genitourinary: reports: Nocturia. denies: Dysuria, Hematuria - Musculoskeletal Musculoskeletal: reports: Joint pain (to b/l hands), Assistive devices. denies: Joint swelling - Integumentary Integumentary: reports: Dryness - Neurological Neurological: reports: General weakness, Memory problems - Psychiatric Psychiatric: denies: Depression - Endocrine Endocrine: denies: Diabetes type 2 - Hematologic/Lymphatic Hematologic/Lymph: Other (MDS) - All Other Systems All Other Systems: reports: Reviewed and negative Physical Exam - Vital Signs Temperature: 36.6 C Pulse Rate: 60 Respiratory Rate: 16 O2 Saturation: 96 (on RA at rest) Blood Pressure: 129/69 (left wrist cuff) - Physical Exam General Appearance: positive: No acute distress, Alert, Other (well groomed) Eyes Bilateral: positive: Normal inspection, Other (+corrective lenses) ENT: positive: No signs of dehydration, Other (+hearing aids) Neck: positive: Trachea midline Cardiovascular: positive: Regular rate & rhythm, Other (+paced). negative: No murmur Respiratory: positive: No respiratory distress, Other (bibaslar crackles). 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 He is able to ascend and descend stairs. Has a history of falls. Able to put on and take off his close however, becomes quite fatigued. PPS 60% - Palliative Care Discussion: In the last 6 weeks the patient has had multiple evaluations for symptom management. He was hospitalized for congestive heart failure exacerbation in October 2019. The patient's daughter recognizes is an overall decline with the patient in recent months. He is continuing to have good days and bad days. Typically the daughter is able to pinpoint a good day based on the patient's oral intake in the morning. He himself perceives that at the present time he "does not need anything as I am fine." However, the patient's daughter wishes to have the additional support of palliative care for symptom management. The patient finds to going to the hospital in the emergency department disruptive and ideally wishes to ultimately remain at home and manage his symptoms if at all possible. 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 He is someone that wishes to have the fax and has not been an emotional individual recognizing emotions and himself. The patient wishes to maintain his independence for as long as possible. He himself cannot imagine ever being in a facility despite his presently being in a memory care unit. Initiating light into his overall exhaustion with dressing and showering he is willing to accept additional caregiving help to maximize his energy conservation. Results - Lab Results Lab results reviewed: Yes Lab and Imaging Results: 12/16/2019 Sodium 136, potassium 4.1, BUN 32, creatinine 1.2, estimated GFR 57, glucose 106, AST 25, ALT 19, alk phos 70, WBC 8.6, RBC 2.93, hemoglobin/hematocrit 10.8/32.2%, platelet 123 Impression and Recommendations - Palliative Care Impression: This is a nathalia 84-year-old gentleman with a significant cardiac history including atrial fibrillation on Coumadin therapy, coronary artery disease, congestive heart failure and is presently without signs or symptoms of CHF exacerbation. He has a longstanding history of chronic balance problems with a history of frequent falls. The patient wishes to optimize his quality of life weighing benefits versus burdens regarding interventions moving forward. He is practical in his decision making process.Palliative care introduced the POLST has well as goals of care. Palliative care to continue to provide support regarding symptom management, anticipatory guidance and advanced care planning. Recommendations/Counseling Done: 1. Congestive heart failure. No evidence of volume overload. Continue a low- sodium diet with elevation of lower extremities when at rest. Has as needed furosemide 20 mg to be administered if needed. Continue to monitor weight t rends. Followed by cardiology. 2. Osteoarthritis, bilateral hands. Difficulty with fine motor skills. The patient to avoid additional oral medications. Consider use of voltaren gel in the future for pain management and due to the fact the patient is on coumadin therapy. 3. History of falls. Fall precautions. Resides on his daughter's property for oversight and safety. Encourage use of Rollator during ambulation. Continue to work with occupational therapist twice weekly for balance, strengthening and energy conservation. 4. History of atrial fibrillation with pacemaker. Continue metoprolol for rate control. On anticoagulation with coumadin followed by cardiology. 5. Myelodysplastic syndrome. S/p vidaza chemotherapy. Mild anemia and thrombocytopenia noted with recent labs 12/16/2019. F/u with hematology/oncology as scheduled. 6. Advanced care planning. Lengthy discussion begun today regarding goals of care. The patient wishes to maintain his independence for as long as possible and does not see himself in a facility at end-of-life. The patient wishes to manage symptoms as much as possible within the home with avoidance of the emergency department as he finds this destructive. 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 POLST reviewed at length today with the patient and his daughter/DPOA, Sunita. Patient wishes to be a DN AR with selective interventions weighing the benefits versus burdens regarding interventions before proceeding. He wishes to utilize antibiotics at the present time for prolongation of life and wishes to avoid medically assisted nutrition by tube. Supportive listening provided for exploration regarding goals of care. Time Spent: Total time spent 90 minutes with greater than 50% of this spent in counseling and coordination of care with the patient and daughter/DPOA; review of palliative and hospice philosophies; explanation and completion of POLST; examination of patient; review of symptom management and anticipatory guidance. Disclaimer: The chart note was formulated using voice recognition technology and unfortunately sound alike errors may occur.
== END 2020-01-02 10:51 | disposition home or self-care (01) ==
LOC: PC 10:50
PROVIDERS: ATTEND Nurse Practitioner Family
DX: Z51.5 Encounter for palliative care (principal); I50.9 Heart failure, unspecified; I11.0 Hypertensive heart disease with heart failure; M19.042 Primary osteoarthritis, left hand; M19.041 Primary osteoarthritis, right hand; R26.81 Unsteadiness on feet; Z91.81 History of falling; I48.91 Unspecified atrial fibrillation; Z79.01 Long term (current) use of anticoagulants; Z95.0 Presence of cardiac pacemaker; D46.9 Myelodysplastic syndrome, unspecified; I25.810 Atherosclerosis of coronary artery bypass graft(s) without angina pectoris; Z66 Do not resuscitate
CPT/HCPCS: 99345

== ENCOUNTER 2020-01-29 03:07 | Outpatient (CLI) | payer BC | END 2020-01-29 03:08 | disposition EMS.NT | LOC: EMS 03:07 | PROVIDERS: ATTEND Surgery | DX: Z03.89 Encounter for observation for other suspected diseases and conditions ruled out (principal) ==

== ENCOUNTER 2020-01-29 13:11 | Outpatient (CLI) | payer BC ==
--- NOTE | 2020-01-29 16:14 | XRAY Report ---
PROCEDURE: Chest 2 View X-Ray INDICATIONS: RESPIRATORY CRACKLES TECHNIQUE: 2 view(s) of the chest. COMPARISON: Chest x-ray 12/16/2019 FINDINGS: Surgical changes and devices: Pacemaker as well as sternal wires and clips are noted. Lungs and pleura: No pleural effusions or pneumothorax. Minimal appearance of increased vascularity is present. Mediastinum: Mediastinal contours are normal. Heart size is markedly enlarged.. Bones and chest wall: No suspicious bony abnormalities. Soft tissues appear unremarkable. IMPRESSION: Craniotomy with increased vascularity suggestive of CHF. Reviewed by: Karime Bui MD on 01/29/2020 4:13 PM PST Approved by: Karime Bui MD on 01/29/2020 4:13 PM PST Station ID: [id number]
== END 2020-01-29 13:12 | disposition home or self-care (01) ==
LOC: DI 13:11
PROVIDERS: ATTEND Family Medicine
DX: R91.8 Other nonspecific abnormal finding of lung field (principal)

== ENCOUNTER 2020-01-30 10:45 | Outpatient (CLI) | payer BC ==
--- NOTE | 2020-01-30 13:37 | CONSULTATION NOTE ---
Palliative Care Follow Up - Referral Referring Provider: Dr. Shaka Tang Time of Visit: [id number] Referral setting: Home Referral Reason: Acute Change in Condition/Advanced Care Planning - Information Sources Records reviewed: Previous records reviewed History/Review of Systems obtained from: Patient, Family (daughters Sunita and Gigi present) Exam limitations: Clinical condition (Lethargic and [place]) - History of Present Illness Update Brief HPI Update: This is a nathalia 84-year-old gentleman who was seen and evaluated today within his home with his daughter/Sunita SALINAS present as well as his daughter, Gigi for acute change in condition with underlying congestive heart failure and significant cardiac history. The patient has had a sharp functional decline over the last 6 days. The daughter's report that the patient had a cough beginning on Monday after a meal and subsequently had a gonzalez change in appetite and has been eating very minimally and nothing for the last few days. He continues to have liquids with noted intermittent coughing. He has become weaker and is no longer ambulatory. He did sustain a fall this week rolling out of bed when he was trying to get up to use the restroom. Today he required lift assist to get out of bed. He was seen by oncology on o for MDS that demonstrated stable blood counts and his PCP on 01/28/2020 with not adventagious lung sounds and started on antibiotic therapy, Augmentin for possible pneumonia without noted improvement. He had a CXR obtained on 01/29/2020 that demonstrated "no pleural effusions or pneumothorax Minimal appearance of increased vascularity is present." He has a longstanding history of congestive heart failure and has had recent emergency department visits due to congestive heart failure exacerbation. He is no longer on routine diuretic therapy. He is on Coumadin therapy due to his atrial fibrillation. His Coumadin therapy is presently being held due to recent INR elevation and is scheduled to be rechecked on Monday. The patient's daughter/DPSunita RAMIREZ reports that he has had a steady decline since he had evaluation of his AAA graft in October 2019. He has a history of AAA status post graft performed in 2010. The patient himself is seen sitting up in his recliner in his room that is a [id number]-ull suite at his daughter's house. He is arousable but quickly drifts off to sleep and is unable to stay engaged in the conversation. He is visibly tachypneic and appears pale. No visible diaphoresis. Past Medical History: .Patient has a past medical history of congestive heart failure, hypertension, hyperlipidemia, coronary artery disease, atrial fibrillation on Coumadin therapy, valve disorder with mitral valve regurgitation, aortic aneurysm, sick sinus syndrome, chronic hearing loss, osteoporosis arthritis, myelodysplastic syndrome status post Vidaza, CABG, AAA status post endograft 2010. Social History - Living Situation Living arrangement: At home Living Situation: Other (lives in in-law suite at his daughterSunita's home) Support System: He was born in [place], [place]. He traveled much during his childhood and was at 12 different schools in 12 years. His father at a young age and his mother remarried. The patient's stepfather worked for [employer]. He obtained a bachelor's degree in civil engineering and then a masters from [employer]. He is . His , Sonja presently resides in [facility]. He served in the [employer] for 3 years and 1 year in [place]. He resided for 4 years in [place]. He and his relocated to [place] in [place]. The patient and his have 3 children, 2 daughters and 1 son. The patient resides in an in-law suite on his Sunita jalloh's property. They have a caregiver from [facility] [place] that comes for several hours on Wednesdays to assist with self-care needs. Medications/Allergies - Medications Home Medications: Ambulatory Orders Medication Instructions Recorded Confirmed Isosorbide Mononitrate [Isosorbide 60 mg PO DAILY 12/16/19 01/30/20 Mononitrate ER] Losartan Potassium 25 mg PO DAILY 12/16/19 01/27/20 Metoprolol Succinate 25 mg PO DAILY 12/16/19 01/27/20 Fluocinolone Acetonide Oil [Flac 1 applic TD DAILY 01/07/20 01/27/20 Otic Oil] Ketoconazole 1 applic TD DAILY 01/07/20 01/30/20 Furosemide [Lasix] 20 mg PO DAILY PRN 01/30/20 01/30/20 - Allergies Allergies/Adverse Reactions: Allergies Allergy/AdvReac Type Severity Reaction Status Date / Time No Known Drug Allergies Allergy Verified 11/16/20 09:29 Review of Systems - Constitutional Constitutional: reports: Fatigue, Poor appetite. denies: Chills, Diaphoresis - Eyes Eyes: reports: Corrective lenses - Ears, Nose & Throat Ears, Nose & Throat: reports: Hearing loss, Hearing aids - Cardiovascular Cardiovascular: denies: Edema - Respiratory Respiratory: reports: Cough, SOB at rest, SOB with exertion. denies: Sputum production - Gastrointestinal Gastrointestinal: reports: Constipation (LBM several days ago with decreased food intake), Poor appetite. denies: Abdominal pain, Vomiting - Genitourinary Genitourinary: reports: Incontinence, Nocturia. denies: Dysuria - Musculoskeletal Musculoskeletal: reports: Joint pain (to b/l hands), Assistive devices. denies: Joint swelling - Integumentary Integumentary: reports: Dryness - Neurological Neurological: reports: General weakness, Memory problems - Hematologic/Lymphatic Hematologic/Lymph: Other (MDS) - All Other Systems All Other Systems: reports: Reviewed and negative (ROS obtained from patient's daughters, Sunita and Gigi and as patient is too lethargic to participate) Physical Exam - Vital Signs Temperature: 38.3 C Pulse Rate: 69 Respiratory Rate: 28 O2 Saturation: 85 (on RA at rest) Blood Pressure: 145/67 (left wrist cuff) - Physical Exam General Appearance: positive: Mild distress, Lethargic, Other (appears ill appearing) Eyes Bilateral: positive: Normal inspection, Other (+corrective lenses) ENT: positive: Other (+hearing aids) Neck: positive: Trachea midline Cardiovascular: positive: Regular rate & rhythm, Other (+paced) Respiratory: positive: Other (bibaslar crackles with shallow, increased breathing) Abdomen: positive: Non-tender, Soft, Nml bowel sounds Skin: positive: Other (venous stasis changes BLE) Extremities: positive: No pedal edema Neurologic/Psychiatric: positive: Weakness, Other (Lethargic and unable to be engaged in examination; towards the end of the visit he request to frequently be repositioned in his recliner as he was unable to become fully comfortable until after multiple adjustments) Palliative Care - POLST Patient has POLST: Yes POLST Status: DNR, Selective Treatment Pain: No pain Performance Status: Patient has had a significant functional decline and the last 6 days. He is no longer ambulatory when previously he was able to ambulate with his Rollator. He has had a fall out of bed. He is not consuming any food and is taking in liquids with noted coughing. PPS 20% - Palliative Care Discussion: Since October 2019 the patient has had a functional decline and a sharp decline in the preceding 6 days. He is extremely lethargic, weak with minimal oral intake. He has been treated for pneumonia by his PCP but has not responded to oral antibiotic therapy. At the present time, the patient is lethargic and unable to participate in decision-making processes and therefore defaults to his children and DPOA's. His 2 daughters, Gigi and Sunita are present Had given the patient's decline in the desire to wish to avoid a hospitalization that would not allow visitors due to the coronavirus they wish to focus on making the patient comfortable With in his home setting with the added layer of support of hospice services. Hospice admission is pending for later this afternoon and the patient has been ordered for hospital bed and oxygen supplementation that is to be delivered later today. Spoke with patient's PCP, Dr. Howe who reports that upon review of the chest x-ray image performed on 01/28 demonstrates a right lower lobe pneumonia which was not in negative on the patient's chest x-ray report. However, the patient has failed outpatient oral antibiotic therapy and has not had noted improvement. We will leave up the decision to the patient's family if they wish to continue the course of Augmentin but given the patient's decline it is unlikely that he will have noted benefit from oral antibiotic therapy and if aggressive measures were desired would need to transfer to the hospital. However, the patient's family desires to be around him with the patient's son coming up tomorrow and he has his grandchildren as well as his 2 daughters present at the bedside to focus on quality of life. The family will continue to hope for the best but recognize that the patient is declining and if continues on this course prognosis is days to weeks. Results - Lab Results Lab results reviewed: Yes Lab and Imaging Results: Radiology report 01/29/2020 from CXR,--this provider does not have access to images. Impression and Recommendations - Palliative Care Impression: This is a nathalia 84-year-old gentleman with a significant cardiac history including atrial fibrillation, coronary artery disease, congestive heart failure clinically demonstrating increased work of breathing indicative of possible congestive heart failure versus community-acquired pneumonia. He has not responded to oral antibiotic therapy on an outpatient basis. The patient's family and DPOA wishes to focus on quality of life and symptom management within the home and is to transition to hospice services later this afternoon. Introduced the role of hospice services and goals moving forward and provided empathetic, supportive listening to the patient's family. Palliative care to transition to hospice services. Recommendations/Counseling Done: 1. Right lower lobe pneumonia. Noted on imaging by patient's PCP, Dr. Howe and was started on oral Augmentin as an outpatient on 01/27 given physical exam findings without noted improvement on an outpatient basis. The patient demonstrates evidence of coughing intermittently while sipping on fluids and possible has some underlying dysphagia and potentially aspiration pneumonia. He has had a significant functional decline in the last 6 days and is now bedbound and no longer ambulatory. His oral intake is only liquids at the present time and no recent solid foods. The patient's family recognizes his decline and leaving up to them if they wish to continue oral antibiotic therapy however, this has not provided a change in the patient's symptomatology since initiation and would likely not offer benefit moving forward. The patient is being admitted to hospice services later this afternoon as the patient's family wishes to focus on comfort within the home setting and avoidance of hospitalization due to lack of visitation due to coronavirus pandemic. Discussed comfort kit with the patient's daughters that will be initiated from hospice services and explained the role of morphine sulfate in regards to having decreased work of breathing for the patient and he is also to have supplemental oxygen therapy which be of benefit as his current pulse oximetry is at 85% on room air with increased work of breathing. Questions answered and addressed to both the daug hters. 2. Congestive heart failure. Adventitious lung sounds noted on evaluation. Administered 20 mg of furosemide at 1130 to decrease any potential volume overload noted on examination. Will need to consider moving forward if any additional furosemide dosing is needed by hospice medical doctor md moving forward. 3. History of falls. Fall precautions. Encouraged that the patient not be lef t alone in the in-law suite and for family member to be present. 4. History of a prior atrial fibrillation with pacemaker and HTN. Reviewed at length burdens and benefits of coumadin, including fact that given poor nutritional status, then INR cannot remain in consistently therapeutic and requiring frequent blood draws that can be burdensome. As the family/DPOAs wish to focus on comfort and transition hospice and risks of anticoagulation outweigh the benifit, daughters in agreement for discontinuation of coumadin therapy. Continue isosorbide, losartan and metoprolol at the present time. As suspect the patient will continue to decline will need further adjustment of anti- hypertensive medications. . Explained alternative with full dose ASA will not offer same amount of "protection" against stroke, but that in X clinical sce 5. Advance care planning. Patient has POLST as DN AR with selective interventions.Given the patient's acute functional status change and lethargy that is multifactorial due to right lower lobe pneumonia and potential underlying congestive heart failure the family wishes to avoid hospitalization and therefore transition to hospice services to have symptom management within the home environment recognizing that the patient may not recover from this event but the family wishes to remain in optimistic and hope for the best. The patient's daughter/DPOASunita has been providing much of the caregiving support for both of her parents and overseeing their medical care and displays some signs and symptoms of caregiver burden and will benefit from additional support from the hospice team during this transition. At the Sunita jalloh is permission this [employer]EL[employer] contacted home place making them aware of his and transition to hospice services and to not contact the patient in regards to healthcare decision-making in regards to his and to default to the next DPOA. Supportive listening provided. Time Spent: Admission to [facility] this afternoon. Total time spent 60 minutes with greater than 50% of this spent in counseling and coordination of care with patient and daughtersSymone; esclatation vs de-escalation of care; hospice philosophy; examination of patient; supportive listening; review of pain and symptom management and anticipatory guidance. Discussed with PCP, Dr. Curtis and aware of transition to hospice service and in agreement. Provided Dr. Curtis with patient's daughterSunita's direct contact number. Disclaimer: The chart note was formulated using voice recognition technology and unfortunately sound alike errors may occur.
== END 2020-01-30 10:46 | disposition home or self-care (01) ==
LOC: PC 10:45
PROVIDERS: ATTEND Nurse Practitioner Family
DX: Z51.5 Encounter for palliative care (principal); J18.9 Pneumonia, unspecified organism; I50.9 Heart failure, unspecified; R79.1 Abnormal coagulation profile; I48.91 Unspecified atrial fibrillation; I25.10 Atherosclerotic heart disease of native coronary artery without angina pectoris; I11.0 Hypertensive heart disease with heart failure; Z95.1 Presence of aortocoronary bypass graft; Z74.01 Bed confinement status; Z66 Do not resuscitate
CPT/HCPCS: 99350